=== PATIENT | female | born 1930 | race Caucasian/White ===

== ENCOUNTER → 2020-10-01 | Outpatient (CLI) | payer MEDICARE ==
[~2020-10-01] MED LIST: CLOP75TA2 PO; ISOVUE-300 61% 50ML VIAL As Ordered ONE; LAMO200T3 PO; LEVO100T5 PO; LIDOCAINE 1% MDV 20ML VIAL As Ordered ONE; LOSA100T50 PO; LOVA40TA PO; MAGN1TAB39 PO; MECL-86 PO; METO1TAB87 PO; MIDAZOLAM INJ 2MG/2ML VIAL (J2250 PER 1MG) As Ordered ONE; PANT40TA29 PO; PENT400T47 PO; fentaNYL 100 MCG/2 ML INJECTION (J3010) As Ordered ONE; hydrALAZINE 20MG/ML 1ML VIAL (J0360 PER 20MG) As Ordered ONE
[2020-10-01 08:46] LABS: HEMATOCRIT 41.5 % (36.0-47.0); HEMOGLOBIN 13.2 g/dl (12.0-15.5); MEAN CORPUSCULAR HEMOGLOBIN 27.6 pg (27.0-33.0); MEAN CORPUSCULAR HGB CONC 31.8 g/dl (32.0-36.5); MEAN CORPUSCULAR VOLUME 86.6 fl (80.0-96.0); PLATELET COUNT, AUTOMATED 295 10^3/uL (150-450); RED BLOOD COUNT 4.79 10^6/uL (4.00-5.40)
[2020-10-01 08:55] LABS: CALCIUM LEVEL 7.6 MG/DL (8.8-10.2); CREATININE FOR GFR 1.29 MG/DL (0.55-1.30); GLOMERULAR FILTRATION RATE 41.5 (>32); POTASSIUM SERUM 4.7 MEQ/L (3.5-5.1)
--- NOTE | 2020-10-01 11:36 | ROOPDOC ---
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 Ultrasound-guided access right common femoral artery 2. Aortoiliofemoral arteriogram 3. Selection left common femoral and superficial femoral artery and left lower extremity runoff 4. 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 Angioplasty left superficial femoral artery and proximal popliteal artery with 4 x 200 [place] balloon 6. Stent placement from proximal left popliteal artery with 5 x 150 Innova stent extending proximally in the SFA with a 6 x 150 Innova stent and post-dilation with 5 x 200 [place] balloon 7. Cross chronic total occlusion left anterior tibial artery with selection distal anterior tibial artery and arteriogram 8. Angioplasty left anterior tibial artery with 2.5 x 220 Tripp balloon 9. Angioplasty left peroneal artery with 2.5 x 220 Tripp balloon 10. Cross chronic total occlusion left posterior tibial artery was selection distal posterior tibial artery and arteriogram 11. Angioplasty left posterior tibial artery with 2.5 x 220 Tripp balloon 12. Completion arteriograms left lower extremity 13. Mynx closure right common femoral artery SURGEON: Manjit Martinez MD ANESTHESIA: Local anesthesia 4 mL lidocaine. Moderate intravenous conscious sedation was supervised by Dr. Martinez. The patient was independently monitored by registered nurse assigned to the Department of radiology using automated blood pressure, EKG, and pulse oximetry. The detailed sedation record is permanently stored in the hospital information system. The following is a brief sedation record: Start time 09:52, stop time 10:59, Versed 1.5 mg IV, fentanyl 75 g IV, heparin 4000 units IV, hydralazine 10 mg IV. CONTRAST: 44 mL Isovue-300 INDICATION FOR PROCEDURE: This is a very pleasant 89-year-old patient with atherosclerosis the [place] arteries and left lower extremity claudication, with severe pain in the left foot thought to be mostly neuropathic, but may also be related to arterial insufficiency. Risks benefits and alternatives to a left lower extremity arteriogram and potential intervention were explained to the patient and she is agreeable to proceed. Informed consent was obtained. The patient does have renal insufficiency, so we did pre-hydrate her before the procedure, gave additional IV fluids and flushes during the procedure, and we'll hydrate her for 4 hours after the procedure as well. We also used a little IV contrast as possible. She understands the risks of contrast-induced nephropathy even with these precautions, and still wishes to proceed. INTERPRETATION: 1. The aortoiliofemoral segments are mildly ectatic but not stenotic. There is no flow-limiting stenoses in the common iliac arteries, external iliac arteries, or hypogastric arteries. 2. The left common femoral artery is widely patent with good flow into the profunda and the proximal SFA. The mid SFA has some calcified plaque in stenoses, and the distal SFA has heavy calcified plaque within 3 cm occlusion, and then reconstitution below this from collaterals. There is also some plaque and stenosis limiting flow in the proximal popliteal artery, but the mid distal popliteal artery although mildly ectatic is no flow-limiting stenoses. The tibial outflow is very limited due to heavy calcified plaque. The peroneal artery is the best runoff but has a mid calf occlusion with reconstitution distal to this. The anterior tibial artery and posterior tibial artery both occlude near their origins and have some thready intermittent reconstitution from collaterals but from the mid calf to the foot show no flow. 3. After angioplasty of the superficial femoral artery on the left, there is a marked improvement in flow but multiple areas of flow-limiting dissection and residual stenosis in the areas of occlusion and heaviest plaque. After stenting and post-dilating the SFA and proximal popliteal artery, there is widely patent flow with no extravasation, no embolization, no dissection, no AV fistula, no residual stenosis. 4. Arteriogram of the distal left anterior tibial artery confirmed we were in the true lumen. I did not see outflow into the dorsal pedis artery but there are 2 medial and lateral collaterals at the ankle to provide outflow. After angioplasty, the vessel is widely patent throughout its length. No significant residual stenosis is noted. 5. Arteriogram at the distal left posterior tibial artery revealed that there is outflow into the pedal arch and we were in the true lumen. After angioplasty the posterior tibial artery, there is widely patent flow with good outflow into the foot. No significant residual stenosis is noted. 6. After angioplasty of the left peroneal artery, there is widely patent flow with no significant residual stenosis and three-vessel tibial runoff to the foot. REPORT OF OPERATION: Patient was brought to the angiographic suite in stable condition. Her bilateral groins were prepped and draped in a sterile fashion. A timeout was performed. Sedation was administered without complication. Local anesthesia was administered to skin and subcutaneous tissue over the right common femoral artery. A microneedle was used to access the artery under ultrasound guidance. A wire was passed through this access and the needle was removed. A 4 [place] sheath was placed and flushed with saline. A Glidewire and flushing catheter were advanced in the distal aorta, aortoiliofemoral arteriograms were performed, please see interpretation above. We then went up and over the bifurcation and selected the left common femoral artery and superficial femoral artery with a Glidewire and catheter. Left lower extremity arteriograms were performed, please interpretation above. We advanced a Glidewire into the distal superficial femoral artery under fluoroscopic guidance. We then exchange the sheath over the wire for 6 x 45 cm destination sheath and flushes sheath with saline. A [place] catheter in the Glidewire were used to cross through the chronic total occlusion of the distal superficial femoral artery into the popliteal artery. We selected the distal popliteal artery and a tibial arteriogram confirmed we were in the true lumen through the occlusion. We then predilated the SFA with a 4 x 200 [place] balloon. Following this there was improvement of flow but expected dissections and residual plaque in the areas of occlusion. There was also a dissection and some residual stenosis in the mid SFA at an area of heavy plaque. We then selected a 5 x 150 Innova stent applied this from the proximal popliteal artery to the mid distal superficial femoral artery, and we extend at this proximally with a 6 x 150 Innova stent with a 1 cm overlap. This was postdilated with a 5 x 200 [place] balloon and there was widely patent flow through the stent with no significant residual stenosis and no flow limitations. We then exchange the wire for a 018 Glidewire advantage and advance this with the help of applied cath into the anterior tibial artery. We were able to navigate the balloon partially through the occlusion to the anterior tibial artery and then utilized a 2.5 x 220 Tripp balloon to help us cross to the distal artery. Contrast injection at the distal anterior tibial artery confirmed we were in the true lumen. We then angioplastied along the length of the vessel for three-minute inflations and following this was widely patent flow with good outflow at the ankle. We then navigated the wire into the posterior tibial artery and use the balloon began to cross through to the distal posterior tibial artery. We had to do a stepwise cross with the balloon as it would not pass initially distal to the ankle. Eventually with multiple inflations, we were able to get the balloon all the way to the distal posterior tibial artery and contrast injection confirmed that we were in the true lumen and there was good outflow into the pedal vessels. We then angioplastied along the length of the posterior tibial artery for three- minute inflations and following this there was widely patent flow. We navigated the wire and the peroneal artery and use the balloon to cross the occlusion in the peroneal artery and again three-minute inflations were performed along the length of the vessel. Following this, we had widely patent 3 vessel runoff to the foot with good outflow at the pedal vessels. No extravasation embolization AV fistulas or dissections were noted. We exchange the wire for A035 Glidewire and over this we exchange the sheath for short 6 [place] sheath. A Mynx closure device was deployed at the right common femoral artery with good hemostasis. Pressure was held and sterile dressings were applied. The patient was taken to recovery in stable condition. She tolerated the procedure and the sedation well. ESTIMATED BLOOD LOSS: Approximately 5 mL. PLAN: It is okay to resume home diet and medications. Restart Plavix in the morning. Patient will need 60 days of uninterrupted Plavix due to stent placement. I discussed this with her family. No lifting greater than 5 pounds or strenuous exercise for 48 hours. We will see the patient back in a week to check her perfusion and her groin access site. We appreciate the opportunity to participate in the care of this patient. MANJIT MARTINEZ MD Oct 01, 2020 11:36
[2020-10-01 14:45] VITALS: BP 155/75
== END ==
LOC: M IRPRO 07:28
PROVIDERS: ATTEND Surgery Vascular Surgery
DX: I70.245 Atherosclerosis of native arteries of left leg with ulceration of other part of foot (principal); I70.213 Atherosclerosis of native arteries of extremities with intermittent claudication, bilateral legs; I70.92 Chronic total occlusion of artery of the extremities; I12.9 Hypertensive chronic kidney disease with stage 1 through stage 4 chronic kidney disease, or unspecified chronic kidney disease; M79.672 Pain in left foot; N18.32 Chronic kidney disease, stage 3b; Z79.890 Hormone replacement therapy; Z79.899 Other long term (current) drug therapy; Z88.6 Allergy status to analgesic agent; Z88.8 Allergy status to other drugs, medicaments and biological substances
CPT/HCPCS: 37226; 37228; 37232; 75630; 75774; 80048; 85027; 99152; 99153; C1725; C1729; C1760; C1769; C1876; C1887; C1894; J0360; J1644; J2250; J3010; Q9967

== ENCOUNTER → 2020-11-11 | Outpatient (CLI) | payer MEDICARE ==
[~2020-11-11] MED LIST changes: -ISOVUE-300 61% 50ML VIAL As Ordered ONE; -LIDOCAINE 1% MDV 20ML VIAL As Ordered ONE; -MIDAZOLAM INJ 2MG/2ML VIAL (J2250 PER 1MG) As Ordered ONE; -fentaNYL 100 MCG/2 ML INJECTION (J3010) As Ordered ONE; -hydrALAZINE 20MG/ML 1ML VIAL (J0360 PER 20MG) As Ordered ONE
--- NOTE | 2020-11-11 12:55 | REP ---
INDICATION: ATH KARLI ART OF CANDACE LEGS, CLAUDICATION COMPARISON: None. TECHNIQUE: Real time claros scale and color Doppler evaluation of the bilateral lower extremity arterial vasculature using linear high frequency transducer. FINDINGS: Right lower extremity demonstrates moderate atheromatous plaquing with biphasic arterial wave patterns. There is complete occlusion at the proximal to distal posterior tibial artery. No further significant narrowing or stenosis noted. Left lower extremity demonstrates moderate atheromatous plaquing with biphasic arterial wave patterns. Evidence for occlusion at the distal anterior tibial artery. Patent stent extends from the proximal superficial femoral artery to popliteal artery. Peak systolic velocities (cm/sec) Common femoral artery: Right 133; Left 110 Profunda femoris: Right 62; Left 71 SFA (proximal): Right 76; Left 81 SFA (mid): Right 79; Left 80 SFA (distal): Right 66; Left 76 Popliteal artery: Right 52; Left 73 CLAIRE (prox.): Right 40; Left 47 Tibioperoneal trunk: Right 37; Left 67 COAL CHEMIST (prox.): Right occluded; Left 23 COAL CHEMIST (distal): Right occluded; Left 88 CLAIRE (distal): Right 56; Left occluded IMPRESSION: 1. Moderate bilateral atheromatous plaquing. 2. Areas of bilateral occlusion as described above. 3. Left stent appears patent. <Electronically signed by Kirit Lopez > 11/11/20 [id number]
== END ==
LOC: M RAD 10:40
PROVIDERS: ATTEND Physician Assistant
DX: I70.213 Atherosclerosis of native arteries of extremities with intermittent claudication, bilateral legs (principal); I70.245 Atherosclerosis of native arteries of left leg with ulceration of other part of foot